=== PATIENT | male | born 1975 | race Caucasian/White ===

== ENCOUNTER 2019-05-16 09:47 | Emergency (ER) | payer OTHER ==
[~2019-05-16] VITALS: Ht 180.3 cm; Wt 84.3 kg
--- NOTE | 2019-05-16 10:06 | NUR ---
ORDER SELECTOR: PT TO ROOM FROM ED FRONT NURSES STATION.
--- NOTE | 2019-05-16 10:13 | NUR ---
Pt to room from wall with tool repair technician. tool repair technician removing pt belongings and providing pt hospital gown. Pt in SI/HI secured room with zhang down and sitter in direct line of sight for observation.
--- NOTE | 2019-05-16 10:33 | NUR ---
Pt ambulates with steady gait and balance to restroom to proivde urine sample. No needs expressed at this time. Pt provided treaded socks and blankets for comfort measures. Room is secured for SI/HI with zhang pulled down. Pt has 1 belongings bag labeled in ED locker for safe keeping. Pt has sitter near bedside in direct line of sight for observation.
[2019-05-16 10:37] LABS: BASOPHILS # (AUTO) 0.06 x10^3/uL (0-0.1); BASOPHILS % (AUTO) 1 % (0-1); EOSINOPHILS # (AUTO) 0.09 x10^3/uL (0-0.4); EOSINOPHILS % (AUTO) 1 % (1-7); LYMPHOCYTES # (AUTO) 3.59 x10^3/uL (1-3.4); LYMPHOCYTES % (AUTO) 45 % (22-44); MD NO; MEAN CORPUSCULAR HEMOGLOBIN 34.2 pg (27.5-34.5); MEAN CORPUSCULAR HGB CONC 33.7 g/dL (33.2-36.2); MEAN CORPUSCULAR VOLUME 101.5 fL (81-97); MONOCYTES # (AUTO) 0.52 x10^3/uL (0.2-0.8); MONOCYTES % (AUTO) 7 % (2-9); NEUTROPHILS % (AUTO) 47 % (42-75); PLATELET COUNT 322 x10^3/uL (130-400); RED BLOOD COUNT 5.34 x10^6/uL (4.38-5.82); RED CELL DISTRIBUTION WIDTH 14.2 % (9.4-14.8)
[2019-05-16 10:42] LABS: ALANINE AMINOTRANSFERASE 90 U/L (12-78); ALBUMIN 4.5 g/dL (3.4-5.0); ANION GAP 15 mmol/L (5-15); CALCIUM 8.9 mg/dL (8.5-10.1); CHLORIDE 101 mmol/L (98-107); CREATININE 1.27 mg/dL (0.7-1.3)
[2019-05-16 10:44] LABS: ALKALINE PHOSPHATASE 117 U/L (45-117); TOTAL PROTEIN 8.9 g/dL (6.4-8.2)
[2019-05-16 10:55] LABS: SALICYLATE LEVEL < 1.7 mg/dL (2.8-20.0)
[2019-05-16 11:01] LABS: AMPHETAMINE SCREEN, URINE Negative (Negative); BARBITURATE SCREEN, URINE Negative (Negative); BENZODIAZEPINE SCREEN, URINE Negative (Negative); CANNABINOID SCREEN, URINE Negative (Negative); COCAINE SCREEN, URINE Negative (Negative); METHADONE SCREEN, URINE Negative (Negative); OPIATE SCREEN, URINE Negative (Negative)
--- NOTE | 2019-05-16 12:07 | NUR ---
BREAK RN: PT CALMLY LAYING ON GURNEY WITH EYES CLOSED, NAD WITH EQUAL CHEST RISE/FALL, NO NEEDS AT THIS TIME, AWAITING MEAL TRAY FROM DIETARY, PT REMAINS IN SAFE ENVIRONMENT, SITTER IN VIEW.
--- NOTE | 2019-05-16 13:10 | NUR ---
Provided pt with vegetarian lunch tray per request. Pt appreciative. No other needs expressed at this time.
--- NOTE | 2019-05-16 14:24 | NUR ---
Requested hospital bed from housekeeping for pt.
--- NOTE | 2019-05-16 16:02 | NUR ---
Pt asleep on [facility]. No needs expressed at this time. Pt has unlabored respirations with even chest rise and fall. Sitter near doorway in direct line of sight for observation.
--- NOTE | 2019-05-16 17:45 | NUR ---
Pt sitting on gurney watching TV. No needs expressed at this time. Sitter in direct line of sight for observation. Meal tray ordered.
--- NOTE | 2019-05-16 18:08 | NUR ---
Dinner tray provided to pt. No other needs expressed at this time. Sitter in direct line of sight for observation.
--- NOTE | 2019-05-16 18:56 | NUR ---
Provided bedside report to MISHA Tobar. All questions answered. MISHA Tobar to assume care of pt at this time.
--- NOTE | 2019-05-16 19:34 | NUR ---
Received report from diurnal RN and assumed patient care. Patient resting in [facility] bed requested from central supply, awaiting arrival. Patient requested pillow while bedside report given. Pillow given by diurnal RN. Awaiting reassessment of blood alcohol level and psychiatric evaluation on return to sobriety.
--- NOTE | 2019-05-16 20:41 | NUR ---
TP: PT PLACED ON A HOLD. PACKET FAXED TO [facility], [facility] AND [facility]
--- NOTE | 2019-05-16 22:23 | NUR ---
Patient resting comfortably, denies further needs. Sitter in hallway, less than two steps away, able to visualize patient.
--- NOTE | 2019-05-17 00:19 | NUR ---
PT SLEEPING. NAD. SITTER IN PLACE.
--- NOTE | 2019-05-17 03:09 | NUR ---
Patient resting, sitter in hallway able to visualize patient. Awaiting placement.
--- NOTE | 2019-05-17 07:04 | NUR ---
Bedside report received from Amadou CABRAL, pt care transferred at this time.
--- NOTE | 2019-05-17 07:28 | NUR ---
Pt resting in gurney, eyes closed, even and unlabored breathing, NAD. Sitter in [place] monitoring. WCTM.
--- NOTE | 2019-05-17 08:12 | NUR ---
Late Entry: pt given SI breakfast tray, eating in gurney, NAD, denies additional needs at this time. WCTM.
--- NOTE | 2019-05-17 09:15 | NUR ---
LATE ENTRY: Pt resting in gurney under blankets, NAD, denies additional needs at this time, even and unlabored respirations, WCTM.
--- NOTE | 2019-05-17 10:19 | NUR ---
pt laying down on gurney, eyes closed, even and unlabored respirations, NAD, WCTM. Sitter outside of room.
--- NOTE | 2019-05-17 11:20 | NUR ---
Late Entry: Pt laying in gurney with blankets, NAD, even and unlabored respirations, WCTM.
--- NOTE | 2019-05-17 12:22 | NUR ---
Pt resting in gurney, eyes open, even and unlabored respirations, denies additional needs at this time, NAD, [facility].
--- NOTE | 2019-05-17 13:07 | NUR ---
Pt in [facility], given lunch meal tray, NAD, denies additional needs, WCTM.
--- NOTE | 2019-05-17 14:33 | NUR ---
Pt resting in gurney, given tooth brush and paste to brush teeth, denies additional needs, NAD, even and unlabored respirations, even and steady gait, WCTM.
--- NOTE | 2019-05-17 14:58 | NUR ---
RADHA RN: INSURANCE UPDATED. [facility], [facility], [facility], [facility], AND [facility].
--- NOTE | 2019-05-17 15:10 | NUR ---
Pt had a steady and even gait walking to and from phone to make phone call, pt now back to parveen bowman, NAD, denies additional needs at this time. [place], QUINN.
--- NOTE | 2019-05-17 15:21 | NUR ---
Miguel birmingham in [facility] - 05/17/19 at 1522 by CORRIE RADHA CABRAL: FLOYD SANTILLAN
--- NOTE | 2019-05-17 15:49 | NUR ---
pt resting in gurney, eyes closed, even and unlabored respirations, NAD, WCTM, sitter in [place]
--- NOTE | 2019-05-17 16:48 | NUR ---
pt resting in gurney, eyes open, even and unlabored respirations, denies additional needs at this time, LUIS, QUINN, sitter in [place]
[2019-05-17 18:11] VITALS: BP 136/87
[2019-05-17] MEDS ORDERED: QUETIAPINE 25MG TABLET PO SCH (21:00)
[2019-05-18] MEDS ORDERED: METH18TA5 PO (10:02)
[2019-05-18] MEDS ORDERED: MIRT15TA94 PO (10:02)
[2019-05-18] MEDS ORDERED: LAMO25TA5 PO (10:02)
[2019-05-18] MEDS ORDERED: DESV25TA PO (10:02)
== END 2019-05-17 18:33 | disposition left against medical advice (07) ==
LOC: ED 10:25
DX: R45.851 Suicidal ideations (principal); Z53.21 Procedure and treatment not carried out due to patient leaving prior to being seen by health care provider
CPT/HCPCS: 36415; 80053; 80307; 85025; 93005; Q0177

== ENCOUNTER 2019-05-17 16:23 | Inpatient (IN) | payer OTHER ==
[~2019-05-17] VITALS: Ht 180.3 cm; Wt 79.7 kg
[2019-05-17] MEDS ORDERED: POLYETHYLENE GLYCOL 17 GM PACKET PO PRN (17:30)
[2019-05-17] MEDS ORDERED: ACETAMINOPHEN 325 MG TABLET PO PRN (17:30)
[2019-05-17] MEDS ORDERED: ONDANSETRON ODT 4 MG PO PRN (17:30)
[2019-05-17] MEDS ORDERED: DOCUSATE 100 MG CAPSULE PO PRN (17:30)
[2019-05-17] MEDS ORDERED: BISACODYL 10 MG SUPP PR PRN (17:30)
[2019-05-17 20:00] VITALS: BP 138/98
[2019-05-17] MEDS: PLEASE ENTER HEIGHT AND WEIGHT MC SCH (21:26)
[2019-05-17] MEDS ORDERED: QUETIAPINE 25MG TABLET PO SCH (21:30)
[2019-05-18 03:31] LABS: MICROSCOPIC NOT IND
[2019-05-18 03:32] LABS: CULTURE INDICATED? NO
[2019-05-18] MEDS: PLEASE ENTER HEIGHT AND WEIGHT MC SCH (04:21)
[2019-05-18 07:15] LABS: FREE T4 (FREE THYROXINE) 1.26 ng/dL (0.76-1.46); LDL/HDL RATIO 2.4 (0.5-3.0)
[2019-05-18 07:38] VITALS: BP 134/86
[2019-05-18] MEDS ORDERED: DESV25TA PO (10:02)
[2019-05-18] MEDS ORDERED: MIRT15TA94 PO (10:02)
[2019-05-18] MEDS ORDERED: LAMO25TA5 PO (10:02)
[2019-05-18] MEDS ORDERED: METH18TA5 PO (10:02)
[2019-05-18] MEDS ORDERED: VENLAFAXINE 75 MG CAP ER PO SCH (10:30)
[2019-05-18] MEDS ORDERED: DISULFIRAM 250 MG TABLET PO SCH (12:00)
[2019-05-18 19:15] VITALS: BP 125/88
[2019-05-18] MEDS: ATORVASTATIN 20 MG TABLET PO SCH (20:48)
[2019-05-18] MEDS: QUETIAPINE 25MG TABLET PO SCH (20:48)
[2019-05-19 07:51] VITALS: BP 110/80
[2019-05-19 19:58] VITALS: BP 125/89
[2019-05-19] MEDS: QUETIAPINE 25MG TABLET PO SCH (20:04)
[2019-05-19] MEDS: ATORVASTATIN 20 MG TABLET PO SCH (20:04)
[2019-05-20 07:37] VITALS: BP 116/85
[2019-05-20] MEDS ORDERED: ATOR20TA37 PO (12:22)
[2019-05-20 19:15] VITALS: BP 134/83
[2019-05-20] MEDS: ATORVASTATIN 20 MG TABLET PO SCH (19:51)
[2019-05-20] MEDS: QUETIAPINE 25MG TABLET PO SCH (19:52)
[2019-05-21 07:46] VITALS: BP 133/95
== END 2019-05-21 07:40 | disposition home or self-care (01) | DRG 885 ==
LOC: 3E 19:37
PROVIDERS: ADMIT Psychiatry & Neurology Psychosomatic Medicine; ATTEND Psychiatry & Neurology Psychosomatic Medicine
DX: F33.2 Major depressive disorder, recurrent severe without psychotic features (principal); F10.20 Alcohol dependence, uncomplicated; E78.5 Hyperlipidemia, unspecified; G47.00 Insomnia, unspecified; Z79.899 Other long term (current) drug therapy; Z81.8 Family history of other mental and behavioral disorders; Y90.9 Presence of alcohol in blood, level not specified
CPT/HCPCS: 36415; 71045; 80061; 81003; 84439; 84443; 93005; 99285; Q0177